=== PATIENT | female | born 1980 | race Caucasian/White ===

== ENCOUNTER 2018-09-07 15:29 | Emergency (ER) | payer SELFPAY ==
[~2018-09-07] VITALS: Ht 152.4 cm; Wt 81.8 kg
[2018-09-07] MEDS ORDERED: SOD CHLORIDE 0.9% 1,000 ML IV STA (15:32)
[2018-09-07 15:34] VITALS: Ht 152.4 cm; Wt 81.8 kg
[2018-09-07] MEDS ORDERED: LEVE100018 PO (15:57)
[2018-09-07] MEDS ORDERED: NALOXONE 2 MG SYG IV ONE ×2 (16:00)
[2018-09-07 17:30] VITALS: BP 122/87; PULSE 99; RESP 14
[2018-09-07] MEDS ORDERED: AMOX500C2 PO (17:43)
--- NOTE | 2018-09-07 18:03 | ERD ---
ER Documentation Chief Complaint Chief Complaint Heroine over dose BIB friend HPI This is a 38-year-old female that presents to the emergency department altered. Her boyfriend of 3 years found the patient coming out of the bathroom very confused slurred speech and then became diaphoretic and unresponsive. Immediately brought the patient to the emergency department. Her boyfriend states that they have both been in recovery as she has a history of heroin abuse. He is concerned that she could have overdosed. He stated the patient did not hit her head. She was not complaining of any recent headaches. ROS All systems reviewed and are negative except as per history of present illness. Medications Home Meds Active Scripts Amoxicillin* (Amoxicillin*) 500 Mg Cap, 500 MG PO BID for 10 Days, CAP Prov:JOSE ALEJANDRO ASHLEY MD 09/07/18 Reported Medications Levetiracetam* (Keppra*) 1,000 Mg Tablet, 2000 MG PO BID, TAB 09/07/18 Allergies Allergies: Coded Allergies: No Known Allergy (Unverified , 09/07/18) PMhx/Soc Medical and Surgical Hx: pt denies Medical Hx History of Surgery: Yes (APPENDECTOMY, TUBAL LIGATION) Hx Alcohol Use: Yes (occassionally) Hx Substance Use: Yes (Per pt heroine use [id number] ago/pt friend BIB state 10min [employer]) Hx Tobacco Use: Yes Smoking Status: Current every day smoker Physical Exam Vitals Vital Signs Date Temp Pulse Resp B/P (MAP) Pulse Ox O2 O2 Flow FiO2 Time Delivery Rate 09/07/18 99.1 99 14 122/87 98 Room Air 17:30 (99) 09/07/18 96 13 125/83 99 Room Air 17:00 (97) 09/07/18 95 12 119/78 100 Room Air 16:30 (92) 09/07/18 96 12 118/60 98 Room Air 16:05 (79) 09/07/18 99 18 114/71 98 Room Air 15:50 (85) 09/07/18 98.1 102 16 130/90 100 15:34 (103) 09/07/18 Rebreather 15:30 Physical Exam Constitutional:Well-developed. Well-nourished. Unresponsive HEENT:Normocephalic. Atraumatic.Pupils were pinpoint. Moist mucous membranes.No tonsillar exudates. Neck: No nuchal rigidity. No lymphadenopathy. No posterior cervical spine tenderness or step-offs. Respiratory: No spontaneous ventilatory effort. Cardiovascular: No murmurs no rubs were appreciated. Regular rhythm. Bradycardic. GI: Abdomen was soft. Nontender. Non Distended. No pulsatile abdominal masses or bruits. No rebound. No guarding. Bowel sounds were present and normal. Muscle skeletal: No movement of the upper lower extremities Skin: Diaphoretic. Injection torres present on the left neck and dorsal aspect of the left foot no petechia, no purpura. No lesions on the palms or the soles of the feet. No maculopapular rash. NEURO: Patient was unresponsive with a GCS of 3 Result Diagram: 09/07/18 1551 09/07/18 1551 Results 24 hrs Laboratory Tests Test 09/07/18 15:51 White Blood Count 11.0 10^3/ul Red Blood Count 5.19 10^6/ul Hemoglobin 14.4 g/dl Hematocrit 43.3 % Mean Corpuscular Volume 83.4 fl Mean Corpuscular Hemoglobin 27.7 pg Mean Corpuscular Hemoglobin Concent 33.3 g/dl Red Cell Distribution Width 13.7 % Platelet Count 243 10^3/UL Mean Platelet Volume 9.5 fl Immature Granulocytes % 0.200 % Neutrophils % 63.5 % Lymphocytes % 28.5 % Monocytes % 7.2 % Eosinophils % 0.1 % Basophils % 0.5 % Nucleated Red Blood Cells % 0.0 /100WBC Immature Granulocytes # 0.020 10^3/ul Neutrophils # 7.0 10^3/ul Lymphocytes # 3.1 10^3/ul Monocytes # 0.8 10^3/ul Eosinophils # 0.0 10^3/ul Basophils # 0.1 10^3/ul Nucleated Red Blood Cells # 0.0 10^3/ul Prothrombin Time 13.2 Sec Prothrombin Time Ratio 1.0 INR International Normalized Ratio 0.99 Activated Partial Thromboplast Time 28.9 Sec Sodium Level 144 mmol/L Potassium Level 4.0 mmol/L Chloride Level 109 mmol/L Carbon Dioxide Level 23 mmol/L Anion Gap 12 Blood Urea Nitrogen 18 mg/dl Creatinine 1.08 mg/dl Est Glomerular Filtrat Rate mL/min 57 mL/min Glucose Level 215 mg/dl Calcium Level 9.3 mg/dl Total Bilirubin 0.8 mg/dl Direct Bilirubin 0.00 mg/dl Indirect Bilirubin 0.8 mg/dl Aspartate Amino Transf (AST/SGOT) 104 IU/L Alanine Aminotransferase (ALT/SGPT) 190 IU/L Alkaline Phosphatase 100 IU/L Total Protein 8.5 g/dl Albumin 4.4 g/dl Globulin 4.10 g/dl Albumin/Globulin Ratio 1.07 Salicylates Level < 1.0 mg/dl Acetaminophen Level < 10.0 ug/ml Ethyl Alcohol Level < 10.0 mg/dl Current Medications Medications Dose Sig/Teressa Start Time Status Last (Trade) Ordered Route PRN Stop Time Admin Dose Reason Admin Sodium 1,000 ml @ Q1H STAT 09/07/18 DC 09/07/18 Chloride 1,000 mls/hr IV 15:32 15:52 09/07/18 16:31 Naloxone 2 mg ONCE ONCE 09/07/18 DC 09/07/18 HCl IV 16:00 15:31 (Narcan) 09/07/18 16:01 Naloxone 2 mg ONCE ONCE 09/07/18 DC 09/07/18 HCl IV 16:00 15:33 (Narcan) 09/07/18 16:01 Procedures/MDM This is a 38-year-old female that presented to the emergency department unresponsive. The patient immediately was placed in a monitor technician continuous pulse oximetry, nonrebreather and IV access was able to be established by nursing staff on the dorsal aspect of the right foot. The patient appeared to have an opiate overdose with pinpoint pupils. The patient was given a total of 4 mg of intravenous Narcan with complete return to her baseline mental status. Patient was now alert awake oriented. She did admit to utilizing heroin prior to arrival. I obtained a chest radiograph and there appeared to be the development of an early pneumonia or infiltrate in the right lower lung base. The patient had no severe electrolyte abnormalities. Observation Note: Time: 3 hours Family Hx: No Hypertension Evaluation: Multiple exams showed improving symptoms and no evidence of the patient developing further opiate overdose after the Narcan had worn off. She denied any suicidal homicidal thoughts or ideations. She lives in [place] and stated that she wanted to be discharged and was given a prescription of antibiotics. I also wrote the patient a prescription for Narcan. The patient was discharged home in fair condition. They were instructed to return to the emergency department at any time if there was any worsening of their condition. The patient stated they would follow up with their PCP in the next 24-48 hours to initiate a suitable medication regimen under the care of their PCP as well as to allow their PCP to monitor any drug reactions. The patient was discharged home with prescriptions after they gave informed consent to the new medication. They were also fully informed by myself on the adverse effects and adverse drug interactions in order to provide adequate safeguards to prevent possible adverse reactions to medications. Critical Care: Time: 65 minutes Treatments/Evaluations: Close monitoring and treatment of unstable vital signs, cardiorespiratory, and neurologic status, while maintaining tight balance of fluid, respiratory, and cardiac interventions. Time does not include performing any of the above billable procedures. Departure Diagnosis: Primary Impression: Acute drug overdose Encounter type: initial encounter Injury intent: accidental or unintentional Qualified Codes: T50.901A - Poisoning by unspecified drugs, medicaments and biological substances, accidental (unintentional), initial encounter Additional Impressions: Opiate overdose Encounter type: initial encounter Injury intent: accidental or unintentional Qualified Codes: T40.601A - Poisoning by unspecified narcotics, accidental (unintentional), initial encounter Aspiration pneumonia Aspiration pneumonia type: unspecified Laterality: right Lung location: lower lobe of lung Qualified Codes: J69.0 - Pneumonitis due to inhalation of food and vomit Condition: Fair Patient Instructions: Opiate Abuse, Pneumonia (Adult) JOSE ALEJANDRO ASHLEY MD Sep 07, 2018 18:03
== END 2018-09-07 17:55 | disposition home or self-care (01) ==
LOC: E/R 15:29
DX: T40.691A Poisoning by other narcotics, accidental (unintentional), initial encounter (principal); J69.0 Pneumonitis due to inhalation of food and vomit; F17.210 Nicotine dependence, cigarettes, uncomplicated; R06.02 Shortness of breath
CPT/HCPCS: 71045; 80053; 80307; 85025; 85610; 85730; 96374; 99284; J7030

== ENCOUNTER 2018-10-05 18:29 | Emergency (ER) | payer SELFPAY ==
[~2018-10-05] VITALS: Ht 160 cm; Wt 83.6 kg
[~2018-10-05 18:29] MED LIST: AMOX500C2 PO; LEVE100018 PO
[2018-10-05 18:48] VITALS: BP 121/57; PULSE 102; RESP 20; Ht 160 cm; Wt 83.6 kg
== END 2018-10-05 22:36 | disposition left against medical advice (07) ==
LOC: FTE 18:29
DX: Z53.21 Procedure and treatment not carried out due to patient leaving prior to being seen by health care provider (principal)